=== PATIENT | male | born 1985 | race Caucasian/White ===

== ENCOUNTER 2025-01-21 20:41 | Emergency (ER) | payer SELFPAY ==
[~2025-01-21] VITALS: Ht 172.7 cm; Wt 67.0 kg
[2025-01-21 20:50] VITALS: BP 113/46; PULSE 79; RESP 12; TEMP 36.5; O2SAT 98; O2SAT 99
== END 2025-01-21 22:49 | disposition left against medical advice (07) ==
LOC: ER 20:41
DX: R10.2 Pelvic and perineal pain (principal)
CPT/HCPCS: 99281